=== PATIENT | female | born 1990 | race Hispanic/Latino ===

== ENCOUNTER 2017-12-02 12:27 | Emergency (ER) | payer OTHER ==
[2017-12-02] MEDS: predniSONE 20 MG TAB PO (16:27)
== END 2017-12-02 16:34 | disposition home or self-care (01) ==
LOC: M ED 12:27
DX: M70.71 Other bursitis of hip, right hip (principal); M70.72 Other bursitis of hip, left hip
CPT/HCPCS: 73502